=== PATIENT | male | born 1980 | race Caucasian/White ===

== ENCOUNTER 2018-12-08 09:27 | Emergency (ER) | payer OTHER ==
[~2018-12-08] VITALS: Ht 165.1 cm; Wt 70.3 kg
[2018-12-08 09:47] VITALS: Ht 165.1 cm; Wt 70.3 kg
[2018-12-08 11:11] VITALS: BP 116/76
== END 2018-12-08 11:11 | disposition home or self-care (01) ==
LOC: ED 09:27
DX: L03.114 Cellulitis of left upper limb (principal); S46.811A Strain of other muscles, fascia and tendons at shoulder and upper arm level, right arm, initial encounter; X50.0XXA Overexertion from strenuous movement or load, initial encounter; Y93.89 Activity, other specified; Y92.89 Other specified places as the place of occurrence of the external cause; Y99.8 Other external cause status
CPT/HCPCS: J1885